=== PATIENT | male | born 1950 ===

== ENCOUNTER 2018-07-02 06:51 | Inpatient (IN) | payer MEDICARE, MEDICAID ==
[2017-10-01 09:31] VITALS: BMI 29.7
[2018-07-02] MEDS ORDERED: Bacitracin 150,000 UNIT in Sodium Chloride 0.9% Irrig 3,000 ML IR SCH (08:00)
[2018-07-02] MEDS ORDERED: Propofol 10 mg/ml Inj (20 ML) ONE (09:03)
[2018-07-02] MEDS ORDERED: Midazolam 2 MG/2 ML VIAL ONE ×2 (09:05→14:28)
[2018-07-02] MEDS ORDERED: Phenylephrine 10 mg/ml Inj ONE (09:29)
[2018-07-02] MEDS ORDERED: Rocuronium 10 mg/ml (5 ml) ONE (10:08)
[2018-07-02] MEDS ORDERED: Morphine 4 MG/ML VIAL ONE (10:25)
[2018-07-02] MEDS: Bupivacaine Liposomal Inj 20 ml INFIL ONE ×2 (10:33→12:00)
[2018-07-02] MEDS ORDERED: Sodium Chloride 0.9% 60 ML IV ONE (11:32)
[2018-07-02] MEDS ORDERED: ePHEDrine 50 mg/ml Inj ONE (12:25)
[2018-07-02] MEDS ORDERED: HYDROmorphone 0.5 mg/0.5 ml ISec IVP PRN (13:12)
[2018-07-02] MEDS ORDERED: Neostigmine Methylsulfate 3mg/3ml Syringe IV ONE (13:21)
[2018-07-02] MEDS ORDERED: Sodium Chloride 0.9% 1,000 ML IV SCH (13:30)
[2018-07-02] MEDS: HYDROmorphone 0.5 mg/0.5 ml ISec IVP PRN ×6 (13:34→15:58)
[2018-07-02] MEDS ORDERED: Midazolam 2 MG/2 ML VIAL IM ONE (14:30)
[2018-07-02] MEDS ORDERED: Bupivacaine 0.25% 20 ML INJ IJ ONE (14:31)
--- NOTE | 2018-07-02 15:11 | RAD ---
Indication: Status post TKR Comparison: None Left knee radiographs Findings: The patient is status post left knee total arthroplasty. Alignment appears satisfactory. Soft tissue swelling, subcutaneous emphysema, surgical drain, and surgical maude compatible with recent postoperative history Impression: Status post left arthroplasty as above.
--- NOTE | 2018-07-02 15:15 | CP.PCM.HP ---
<Terence Fitzpatrick - Last Filed: 07/02/18 17:37> History of Present Illness - History of Present Illness History of Present Illness: PGY1 History and Physical Exam for Dr. Merna Lucero This is a 67 year old male with past medical history of Hep C with possible liver cirrhosis, HTN, HLD, migraine, History of heroin abuse (on methadone for 37 years), and degenerative arthritis of bilateral knees who presents to [facility] POD0 status-post Left TKR with Dr. Prashant Bates 07/02. Patient's is at bedside during evaluation with consent of patient. Patient has no current complaints. Patient complains of pain in his left knee, but otherwise denies chest pain, palpitations, shortness of breath, headache, nausea, vomiting and/ or dizziness. History below was obtained directly from patients chart. PMH: Hep C, HTN, HLD, dilated common bile duct s/p ERCP on 12/23/[address] [facility], heroin abuse (on methadone for 37 years), degenerative arthritis PSH: Left TKR (07/02/18) Sphinctorotomy with bile duct stents x2 Social: Smokes 4 cigarettes daily since his 20's, history of heroin abuse on methadone x37 years Family History: Father: Arthritis PMD: Dr. Lucas Ryan MD ([facility]) Allergies: acetaminophen, penicillins Medications: ASA 81mg PO daily Atorvastatin was discontinued 2/2 increased LFTs Ezetimibe 10mg daily Cozaar 25mg PO Daily Metoprolol Succinate 25mg PO daily Imitrex 25mg BID Methadone 50mg PO daily Present on Admission - Present on Admission Any Indicators Present on Admission: Yes History of DVT/PE: No History of Uncontrolled Diabetes: No Urinary Catheter: No Decubitus Ulcer Present: No History Surgical Site Infection Following: Orthopedic Procedures (Left TKR (07/02) ) Review of Systems - Review of Systems All systems: reviewed and no additional remarkable complaints except - Constitutional Constitutional: As Per HPI - EENT Eyes: As Per HPI Ears: As Per HPI Nose/Mouth/Throat: As Per HPI - Cardiovascular Cardiovascular: As Per HPI - Respiratory Respiratory: As Per HPI - Gastrointestinal Gastrointestinal: As Per HPI - Genitourinary Genitourinary: As Per HPI - Reproductive: Male Reproductive:Male: As Per HPI - Musculoskeletal Musculoskeletal: As Per HPI - Integumentary Integumentary: As Per HPI - Neurological Neurological: As Per HPI - Psychiatric Psychiatric: As Per HPI - Endocrine Endocrine: As Per HPI - Hematologic/Lymphatic Hematologic: As Per HPI Past Patient History - Past Medical History & Family History Past Medical History?: Yes - Past Social History Smoking Status: Never Smoked - CARDIAC Hx Hypertension: Yes - PULMONARY Hx Respiratory Disorders: Yes Hx Pneumonia: Yes (1 year ago) - NEUROLOGICAL Hx Neurological Disorder: No - HEENT Hx HEENT Problems: Yes Hx Cataracts: Yes (bilat iol) - RENAL Hx Chronic Kidney Disease: No - ENDOCRINE/METABOLIC Hx Endocrine Disorders: No - HEMATOLOGICAL/ONCOLOGICAL Hx Blood Disorders: Yes Hx Hepatitis C: Yes (treated no longer) - INTEGUMENTARY Hx Dermatological Problems: No - MUSCULOSKELETAL/RHEUMATOLOGICAL Hx Musculoskeletal Disorders: Yes Hx Degenerative Joint Disease: Yes Hx Osteoarthritis: Yes - GASTROINTESTINAL Hx Gastrointestinal Disorders: No - GENITOURINARY/GYNECOLOGICAL Hx Genitourinary Disorders: No - PSYCHIATRIC Hx Psychophysiologic Disorder: Yes Hx Substance Use: Yes (40 years ago snorted cocaine and herion) - SURGICAL HISTORY Hx Surgeries: Yes Hx Arthroscopy: Yes (LEFT KNEE) Hx Cataract Extraction: Yes - ANESTHESIA Hx Anesthesia: Yes Hx Anesthesia Reactions: No Hx Malignant Hyperthermia: No Has any member of the family had a problem w/ anesthesia?: No Meds Allergies/Adverse Reactions: Allergies Allergy/AdvReac Type Severity Reaction Status Date / Time acetaminophen [From Tylenol] Allergy Intermediate RASH Verified 06/27/18 10:34 Penicillins Allergy Intermediate RASH Verified 02/11/17 09:20 Physical Exam - Constitutional Appears: No Acute Distress - Head Exam Head Exam: ATRAUMATIC, NORMAL INSPECTION, NORMOCEPHALIC - Eye Exam Eye Exam: EOMI, Normal appearance Pupil Exam: NORMAL ACCOMODATION - ENT Exam ENT Exam: Normal Exam - Neck Exam Neck exam: Positive for: Normal Inspection - Respiratory Exam Respiratory Exam: Clear to Auscultation Bilateral, NORMAL BREATHING PATTERN - Cardiovascular Exam Cardiovascular Exam: Tachycardia, REGULAR RHYTHM, +S1, +S2 - GI/Abdominal Exam GI & Abdominal Exam: Normal Bowel Sounds, Soft. absent: Tenderness - Extremities Exam Extremities exam: Positive for: joint swelling (left knee joint with ice packs. Left knee with drain with dark red into tube into canister. ) - Back Exam Back exam: NORMAL INSPECTION - Neurological Exam Neurological exam: Alert, Oriented x3 - Psychiatric Exam Psychiatric exam: Normal Affect, Normal Mood - Skin Skin Exam: Dry, Intact, Normal Color Results - Vital Signs Recent Vital Signs: Last Vital Signs Temp 98 F 07/02/18 07:25 Pulse 60 07/02/18 07:25 Resp 18 07/02/18 07:25 BP 121/81 07/02/18 07:25 Pulse Ox 96 07/02/18 07:25 - Labs Labs: Laboratory Results - last 24 hr 07/02/18 08:17 Blood Type O POSITIVE Antibody Screen Negative Assessment & Plan - Assessment and Plan (Free Text) Assessment: Degenerative Arthritis of L knee S/P L TKR, POD0 - Incentive spirometry Q1 while awake - Clindamycin 900mg IVPB Q8H - PT/OT consulted, recommendations appreciated - Diet: healthy heart diet, managed by surgery - Pain management: * Dilauded pump 6mg IV Q4H PRN * Nerve block placed (07/02) * Oxycodone 10mg PO Q6 PRN - Urine output: 250cc yellow clear liquid - IVF NS @80cc/hr - Monitor CBC, CMP - Neuro checks - Elevate L knee HTN - Continue home medications * Lopressor 25mg PO daily * Losartan 25mg PO daily - Monitor HLD - Discontinue atorvastatin due to elevated LFTs on pre-op labs - Start Ezetimibe 10mg daily Migraine - Home meds: Imitrex 25mg PO BID History of Heroin Abuse - Hold methadone today - Re-start home dose Methadone 50mg PO daily Hep C - monitor LFT - discontinued atorvastatin PPx: Moderate risk (2) CAD: Lexiscan stress test 06/10/18 negative for ischemia (see chart) ASA 81mg PO daily Lovnox 40mg SC Q24H Bedside swallow eval Colace 100mg PO BID Patient seen and case discussed with Dr. Merna Fitzpatrick PGY1 <Nic Bauman H - Last Filed: 07/02/18 18:19> Results - Vital Signs Recent Vital Signs: Last Vital Signs Temp 97.5 F L 07/02/18 17:00 Pulse 91 H 07/02/18 17:00 Resp 15 07/02/18 17:00 BP 154/82 H 07/02/18 17:00 Pulse Ox 100 09/19/18 17:00 - Labs Labs: Laboratory Results - last 24 hr 07/02/18 08:17 Blood Type O POSITIVE Antibody Screen Negative Attending/Attestation - Attestation I have personally seen and examined this patient.: Yes I have fully participated in the care of the patient.: Yes I have reviewed all pertinent clinical information: Yes Notes (Text): 07/02/18 18:19 Medical attending: Patient was seen and examined by me, agrees the above note by the medical certification specialist. The patient was seen in PACU. He had earlier received nerve block and he said that the nerve block was some a controlling his pain. But there are orders for a AGRICULTURAL SCIENCES PROFESSOR pump to be started later on today. The patient's was present at bedside, the patient was okay with the family member being at bedside when we came and spoke with him As mentioned above the patient is status post total left knee replacement. The Lovenox as can be started tomorrow. Per my discussion with orthopedic PA, the patient is allowed to be weightbearing. There is a history of the patient being on methadone., According to the the patient had methadone earlier this morning before the surgery and does not need to take it tonight. The dose is 50 mg once a day Thank you very much, Nic Bauman
[2018-07-02] MEDS ORDERED: Midazolam 2 MG/2 ML VIAL IVP ONE (15:19)
--- NOTE | 2018-07-02 15:19 | PCM.ANESB3 ---
Femoral Nerve Block - Femoral Nerve Block Date of Procedure: 07/02/18 Anesthesiologist: Louis Pre-Procedure Diagnosis: s/p left total knee replacement Procedure Performed: Femoral Nerve Block Left - Procedure Femoral Nerve Block: 14:30 - 14:40 - Left femoral nerve block, adductor canal approach, done in PACU at request of Dr. Go. Using ultrasound guidance, under sterile conditions, 30 cc 0.25% bupivacaine injected in 5 cc increments, negative aspiration throughout. VSS, patient tolerated procedure well.
[2018-07-02 18:50] VITALS: RESP 20
[2018-07-02] MEDS: oxyCODONE 10 mg Immediate Release Tab PO PRN (20:54)
[2018-07-03] MEDS: oxyCODONE 10 mg Immediate Release Tab PO PRN (01:47)
--- NOTE | 2018-07-03 06:59 | CP.PCM.PN ---
Subjective - Date & Time of Evaluation Date of Evaluation: 07/03/18 Time of Evaluation: 06:59 - Subjective Subjective: Patient states dressing is too tight and he was in severe pain all night. Denies CP/SOB/dizziness. Denies numbness/tingling. He says the pain medication isn't helping. Advised patient that due to product tester methadone use, it is difficult to control pain aaron with narcotics and will add NSAID at this time. Patient also refused labs per RN, even after discussion with hospitalist. Patient states he iwll allow labs to be drawn tomorrow per RN Objective - Vital Signs/Intake and Output Vital Signs (last 24 hours): Temp Pulse Resp BP Pulse Ox 98.4 F 102 H 20 150/84 99 07/02/18 23:25 07/03/18 06:32 07/03/18 02:34 07/03/18 06:32 07/03/18 02:34 Intake and Output: 07/02/18 07/03/18 18:59 06:59 Intake Total 1812 1510 Output Total 850 1155 Balance 962 355 - Medications Medications: Current Medications Aspirin (Ecotrin) 81 mg PO DAILY [facility] Docusate Sodium (Colace) 100 mg PO BID [facility] Last Admin: 07/02/18 20:54 Dose: 100 mg Enoxaparin Sodium (Lovenox) 40 mg SC Q24H [facility] Hydromorphone/Sodium Chloride (Dilaudid Cattery Operator) 6 mg IV Q4H PRN; Protocol PRN Reason: Pain, moderate (4-7) Last Admin: 07/03/18 05:17 Dose: 6 mg Clindamycin Phosphate 900 mg/ (Sodium Chloride) 106 mls @ 106 mls/hr IVPB Q8H [facility] PRN Reason: Protocol Stop: 07/06/18 09:59 Last Admin: 07/03/18 01:48 Dose: 106 mls/hr Sodium Chloride (Sodium Chloride 0.9%) 1,000 mls @ 80 mls/hr IV .[id number] [facility] Stop: 07/03/18 14:29 Losartan Potassium (Cozaar) 25 mg PO DAILY [facility] Metoprolol Succinate (Toprol Xl) 25 mg PO DAILY [facility] Oxycodone HCl (Oxycodone Immediate Release Tab) 10 mg PO Q6 PRN PRN Reason: Pain, moderate (4-7) Last Admin: 07/03/18 01:47 Dose: 10 mg Pneumococcal Polyvalent Vaccine (Pneumovax 23 Vaccine) 0.5 ml IM .ONCE ONE Stop: 07/05/18 10:01 - Extremities Exam Additional comments: Left knee: hemovac 15cc last 8 hours, pulled webril and garrett tight, loosened and adjusted knee immobilizer removed, instructed patient it must be worn at night +ROM ankle/toes, sensation intact, +PDP pulses calves soft NT neg homans patient says he has some relief after looseningn of dressing Assessment and Plan (1) Primary osteoarthritis of left knee Assessment & Plan: POD#1 s/p left TKR encourage labs encourage PT/OT VTE proph hemovac pulled d/c planning d/w Dr. George, agrees with above Status: Acute
--- NOTE | 2018-07-03 07:34 | CP.PCM.PN ---
<Terence Fitzpatrick - Last Filed: 07/03/18 10:50> Subjective - Date & Time of Evaluation Date of Evaluation: 07/03/18 Time of Evaluation: 07:31 - Subjective Subjective: Progress note for Dr. Bauman Patient seen and evaluated at bedside this morning. was at bedside with permission of patient. Patient was reminded that he is POD1 and that some pain is to be expected. Patient refused bloodwork today. Patient otherwise denies chest pain, shortness of breath, dizziness, tremors, diaphoresis, nausea, vomiting, diarrhea, fever, chills, and/or headache. 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 Objective - Vital Signs/Intake and Output Vital Signs (last 24 hours): Temp Pulse Resp BP Pulse Ox 98.4 F 102 H 20 150/84 99 07/02/18 23:25 07/03/18 06:32 07/03/18 02:34 07/03/18 06:32 07/03/18 02:34 Intake and Output: 07/03/18 07/03/18 06:59 18:59 Intake Total 1510 Output Total 1155 Balance 355 - Medications Medications: Current Medications Aspirin (Ecotrin) 81 mg PO DAILY [facility] Docusate Sodium (Colace) 100 mg PO BID [facility] Last Admin: 07/02/18 20:54 Dose: 100 mg Enoxaparin Sodium (Lovenox) 40 mg SC Q24H [facility] Hydromorphone/Sodium Chloride (Dilaudid [employer] Fishing Boat Crewman) 6 mg IV Q4H PRN; Protocol PRN Reason: Pain, moderate (4-7) Last Admin: 07/03/18 05:17 Dose: 6 mg Clindamycin Phosphate 900 mg/ (Sodium Chloride) 106 mls @ 106 mls/hr IVPB Q8H [facility] PRN Reason: Protocol Stop: 07/06/18 09:59 Last Admin: 07/03/18 01:48 Dose: 106 mls/hr Sodium Chloride (Sodium Chloride 0.9%) 1,000 mls @ 80 mls/hr IV .[id number] [facility] Stop: 07/03/18 14:29 Ketorolac Tromethamine (Toradol) 30 mg IVP Q6H [facility] Last Admin: 07/03/18 07:24 Dose: 30 mg Losartan Potassium (Cozaar) 25 mg PO DAILY [facility] Metoprolol Succinate (Toprol Xl) 25 mg PO DAILY [facility] Oxycodone HCl (Oxycodone Immediate Release Tab) 10 mg PO Q6 PRN PRN Reason: Pain, moderate (4-7) Last Admin: 07/03/18 01:47 Dose: 10 mg Pneumococcal Polyvalent Vaccine (Pneumovax 23 Vaccine) 0.5 ml IM .ONCE ONE Stop: 07/05/18 10:01 - Additional Findings Additional findings: - Constitutional Appears: No Acute Distress - Head Exam Head Exam: ATRAUMATIC, NORMAL INSPECTION, NORMOCEPHALIC - Eye Exam Eye Exam: EOMI, Normal appearance Pupil Exam: NORMAL ACCOMODATION - ENT Exam ENT Exam: Normal Exam - Neck Exam Neck exam: Positive for: Normal Inspection - Respiratory Exam Respiratory Exam: Clear to Auscultation Bilateral, NORMAL BREATHING PATTERN - Cardiovascular Exam Cardiovascular Exam: Tachycardia, REGULAR RHYTHM, +S1, +S2 - GI/Abdominal Exam GI & Abdominal Exam: Normal Bowel Sounds, Soft. absent: Tenderness absent: Singer catheter (was removed) - Extremities Exam Extremities exam: Positive for: joint swelling (Left knee yeast culture operator to cooling system) Dilaudid pump in tact. bilateral lower extremities: gross sensation in tact bilaterally range of motion in tact in toes bilaterally - Back Exam Back exam: NORMAL INSPECTION - Neurological Exam Neurological exam: Alert, Oriented x3 - Psychiatric Exam Psychiatric exam: Normal Affect, Normal Mood - Skin Skin Exam: Dry, Intact, Normal Color Assessment and Plan - Assessment and Plan (Free Text) Assessment: Degenerative Arthritis of L knee S/P L TKR, POD1 - Incentive spirometry Q1 while awake - Clindamycin 900mg IVPB Q8H - PT/OT consulted, recommendations appreciated - Diet: healthy heart diet, managed by surgery - Pain management: * Dilaudid pump 6mg IV Q4H PRN * Will switch to home dose methadone once discontinued * Nerve block placed (07/02) * Oxycodone 10mg PO Q6 PRN - Urine output: 250cc yellow clear liquid - IVF NS @80cc/hr - Monitor CBC, CMP --> Patient refused bloodwork today. Will reattempt tomorrow 07/04 - Neuro checks - Elevate L knee HTN - Continue home medications * Lopressor 25mg PO daily * Losartan 25mg PO daily - Monitor HLD - Discontinue atorvastatin due to elevated LFTs on pre-op labs - Start Ezetimibe 10mg daily Migraine - Home meds: Imitrex 25mg PO BID History of Heroin Abuse - Hold methadone today - Re-start home dose Methadone 50mg PO daily Hep C - monitor LFT --> Patient refused bloodwork today. Will reattempt tomorrow 07/04 - discontinued atorvastatin PPx: Moderate risk (2) CAD: Lexiscan stress test 06/10/18 negative for ischemia (see chart) ASA 81mg PO daily Lovnox 40mg SC Q24H Bedside swallow eval Colace 100mg PO BID Patient seen and case discussed with Dr. Merna Fitzpatrick PGY1 <Nic Bauman - Last Filed: 07/03/18 14:49> Objective - Vital Signs/Intake and Output Vital Signs (last 24 hours): Temp Pulse Resp BP Pulse Ox 99.6 F 102 H 20 136/76 97 07/03/18 07:30 07/03/18 07:30 07/03/18 07:30 07/03/18 07:30 07/03/18 07:30 Intake and Output: 07/03/18 07/03/18 06:59 18:59 Intake Total 1510 60 Output Total 1155 Balance 355 60 - Medications Medications: Current Medications Aspirin (Ecotrin) 81 mg PO DAILY [facility] Last Admin: 07/03/18 09:35 Dose: 81 mg Docusate Sodium (Colace) 100 mg PO BID [facility] Last Admin: 07/03/18 09:35 Dose: 100 mg Enoxaparin Sodium (Lovenox) 40 mg SC Q24H [facility] Last Admin: 07/03/18 12:48 Dose: 40 mg Hydromorphone/Sodium Chloride (Dilaudid [employer]ishing Boat Crewman) 6 mg IV Q4H PRN; Protocol PRN Reason: Pain, moderate (4-7) Last Admin: 07/03/18 05:17 Dose: 6 mg Clindamycin Phosphate 900 mg/ (Sodium Chloride) 106 mls @ 106 mls/hr IVPB Q8H [facility] PRN Reason: Protocol Stop: 07/06/18 09:59 Last Admin: 07/03/18 09:34 Dose: 106 mls/hr Ketorolac Tromethamine (Toradol) 30 mg IVP Q6H [facility] Last Admin: 07/03/18 12:47 Dose: 30 mg Losartan Potassium (Cozaar) 25 mg PO DAILY [facility] Last Admin: 07/03/18 09:35 Dose: 25 mg Metoprolol Succinate (Toprol Xl) 25 mg PO DAILY [facility] Last Admin: 07/03/18 09:35 Dose: 25 mg Oxycodone HCl (Oxycodone Immediate Release Tab) 10 mg PO Q6 PRN PRN Reason: Pain, moderate (4-7) Last Admin: 07/03/18 01:47 Dose: 10 mg Pneumococcal Polyvalent Vaccine (Pneumovax 23 Vaccine) 0.5 ml IM .ONCE ONE Stop: 07/05/18 10:01 Attending/Attestation - Attestation I have personally seen and examined this patient.: Yes I have fully participated in the care of the patient.: Yes I have reviewed all pertinent clinical information, including history, physical exam and plan: Yes Notes (Text): 07/03/18 14:37 Medical attending: Patient was seen and examined by me, reviewed the above note by the medical services assistant. We saw the patient together. The patient was not in any acute distress when I came and saw him. He tells us that the IV Dilaudid FLOATING [employer]OR GANG SUPERVISOR pump is not enough for him and he actually asked us for more pain medication again I should emphasize that he was not in any acute distress when we saw him. He is already on by mouth immediate release oxycodone , and and also got tramadol overnight. I explained to the family members that are he might be very used to high doses of narcotic medication as he is normally taking methadone. At this time he is not reporting any abdominal pain or nausea. Denied chest pain , denied palpitations. He's can be started on the Lovenox today. As we were leaving he was beginning to have PT/OT evaluation Hopefully tomorrow the patient will allow for blood work, as he refused earlier today when they tried to get a CBC. Nic Bauman
[2018-07-03] MEDS: Metoprolol Succinate 25 mg XL Tab PO SCH (09:35)
[2018-07-03] MEDS: Enoxaparin 40 mg Syringe SC SCH (12:48)
--- NOTE | 2018-07-04 06:58 | CP.PCM.PN ---
<Terence Fitzpatrick - Last Filed: 07/04/18 10:43> Subjective - Date & Time of Evaluation Date of Evaluation: 07/04/18 Time of Evaluation: 06:57 - Subjective Subjective: Progress note for Dr. Bauman Patient seen and evaluated at bedside this morning. Patient is s/p L TKR POD2. Patient was able to get out of bed with PT this morning without complaints. Sitting up in bed and has been using incentive spirometry throughout the day and is compliant. Patient initially declined bloodwork earlier this morning, but when approached about it again, he agreed. Nurse was notified and is aware that he will allow bloodwork done today. Patient otherwise denies chest pain, shortness of breath, dizziness, tremors, diaphoresis, nausea, vomiting, diarrhea , fever, chills, and/or headache. Objective - Vital Signs/Intake and Output Vital Signs (last 24 hours): Temp Pulse Resp BP Pulse Ox 98.7 F 98 H 20 127/95 H 96 07/04/18 04:00 07/04/18 04:00 07/04/18 04:00 07/04/18 04:00 07/04/18 04:00 Intake and Output: 07/03/18 07/04/18 18:59 06:59 Intake Total 60 Balance 60 - Medications Medications: Current Medications Aspirin (Ecotrin) 81 mg PO DAILY [facility] Last Admin: 07/03/18 09:35 Dose: 81 mg Docusate Sodium (Colace) 100 mg PO BID [facility] Last Admin: 07/03/18 17:15 Dose: 100 mg Enoxaparin Sodium (Lovenox) 40 mg SC Q24H [facility] Last Admin: 07/03/18 12:48 Dose: 40 mg Hydromorphone/Sodium Chloride (Dilaudid Auger Supervisor) 6 mg IV Q4H PRN; Protocol PRN Reason: Pain, moderate (4-7) Last Admin: 07/03/18 21:41 Dose: 6 mg Ketorolac Tromethamine (Toradol) 30 mg IVP Q6H [facility] Last Admin: 07/04/18 01:19 Dose: 30 mg Losartan Potassium (Cozaar) 25 mg PO DAILY [facility] Last Admin: 07/03/18 09:35 Dose: 25 mg Metoprolol Succinate (Toprol Xl) 25 mg PO DAILY [facility] Last Admin: 07/03/18 09:35 Dose: 25 mg Oxycodone HCl (Oxycodone Immediate Release Tab) 10 mg PO Q6 PRN PRN Reason: Pain, moderate (4-7) Last Admin: 07/03/18 01:47 Dose: 10 mg Pneumococcal Polyvalent Vaccine (Pneumovax 23 Vaccine) 0.5 ml IM .ONCE ONE Stop: 07/05/18 10:01 - Additional Findings Additional findings: - Constitutional Appears: No Acute Distress - Head Exam Head Exam: ATRAUMATIC, NORMAL INSPECTION, NORMOCEPHALIC - Eye Exam Eye Exam: EOMI, Normal appearance Pupil Exam: NORMAL ACCOMODATION - ENT Exam ENT Exam: Normal Exam - Neck Exam Neck exam: Positive for: Normal Inspection - Respiratory Exam Respiratory Exam: Clear to Auscultation Bilateral, NORMAL BREATHING PATTERN - Cardiovascular Exam Cardiovascular Exam: Tachycardia, REGULAR RHYTHM, +S1, +S2 - GI/Abdominal Exam GI & Abdominal Exam: Normal Bowel Sounds, Soft. 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 bilateral lower extremities: gross sensation in tact bilaterally range of motion in tact in toes bilaterally - Back Exam Back exam: NORMAL INSPECTION - Neurological Exam Neurological exam: Alert, Oriented x3 - Psychiatric Exam Psychiatric exam: Normal Affect, Normal Mood - Skin Skin Exam: Dry, Intact, Normal Color Assessment and Plan - Assessment and Plan (Free Text) Assessment: Degenerative Arthritis of L knee S/P L TKR, POD2 - Incentive spirometry Q1 while awake - Clindamycin 900mg IVPB Q8H - PT/OT consulted, recommend TCU. Will follow-up on placement - Diet: healthy heart diet, managed by surgery - Pain management: * Discontinued: Dilaudid pump 6mg IV Q4H PRN * Will switch to home dose methadone once discontinued * Nerve block placed (07/02) * Oxycodone 10mg PO Q6 PRN - IVF NS @80cc/hr - Monitor CBC, CMP --> Patient refused bloodwork earlier today. Pending bloodwork this morning (see subjective) - Neuro checks - Elevate L knee HTN - Continue home medications * Lopressor 25mg PO daily * Losartan 25mg PO daily - Monitor HLD - Discontinue atorvastatin due to elevated LFTs on pre-op labs - Start Ezetimibe 10mg daily Migraine - Home meds: Imitrex 25mg PO BID History of Heroin Abuse - Re-start home dose Methadone 50mg PO daily Hep C - Monitor LFT --> Patient refused bloodwork today. Will reattempt tomorrow 07/04 - Discontinued atorvastatin PPx: Moderate risk (2) CAD: Lexiscan stress test 06/10/18 negative for ischemia (see chart) ASA 81mg PO daily Lovnox 40mg SC Q24H Bedside swallow eval Colace 100mg PO BID Dispo: patient is to be discharged to TCU per PT recommendations. Patient agrees. Case Management will follow up on placement. Pending that the bloodwork from today confirms hemodynamic stability, patient can be discharged once placement is confirmed. Patient seen and case discussed with Dr. Merna Fitzpatrick PGY1 <Nic Bauman - Last Filed: 07/04/18 13:37> Objective - Vital Signs/Intake and Output Vital Signs (last 24 hours): Temp Pulse Resp BP Pulse Ox 99.7 F H 96 H 20 131/68 100 07/04/18 07:00 07/04/18 07:00 07/04/18 07:00 07/04/18 07:00 07/04/18 07:00 - Medications Medications: Current Medications Aspirin (Ecotrin) 81 mg PO DAILY [facility] Last Admin: 07/04/18 09:28 Dose: 81 mg Docusate Sodium (Colace) 100 mg PO BID [facility] Last Admin: 07/04/18 09:29 Dose: 100 mg Enoxaparin Sodium (Lovenox) 40 mg SC Q24H [facility] Last Admin: 07/04/18 12:30 Dose: 40 mg Hydromorphone HCl (Dilaudid) 2 mg IVP Q4H PRN PRN Reason: Pain, severe (8-10) Last Admin: 07/04/18 11:53 Dose: 2 mg Ketorolac Tromethamine (Toradol) 30 mg IVP Q6H [facility] Last Admin: 07/04/18 08:41 Dose: Not Given Losartan Potassium (Cozaar) 25 mg PO DAILY [facility] Last Admin: 07/04/18 09:28 Dose: 25 mg Metoprolol Succinate (Toprol Xl) 25 mg PO DAILY [facility] Last Admin: 07/04/18 09:29 Dose: 25 mg Oxycodone HCl (Oxycodone Immediate Release Tab) 10 mg PO Q6 PRN PRN Reason: Pain, moderate (4-7) Last Admin: 07/03/18 01:47 Dose: 10 mg Pneumococcal Polyvalent Vaccine (Pneumovax 23 Vaccine) 0.5 ml IM .ONCE ONE Stop: 07/05/18 10:01 - Labs Labs: 07/04/18 11:38 07/04/18 11:38 Attending/Attestation - Attestation I have personally seen and examined this patient.: Yes I have fully participated in the care of the patient.: Yes I have reviewed all pertinent clinical information, including history, physical exam and plan: Yes Notes (Text): 07/04/18 13:37 Medical attending: Patient was seen and examined by me, we saw the patient with the medical research assistant. I reviewed the above note by the resident and agree with the above Fortunately the patient allowed us to get a CBC. Hemoglobin was 9.4. He denied having any chest pain, denied shortness of breath, denied palpitations He reported that overall the pain and his left knee area was much less than previous day. He is now off of the FIELD SERVICER pump, will restart the patient on methadone however only half dose as he still getting other types of pain medication. Nic Bauman
[2018-07-04] MEDS: Metoprolol Succinate 25 mg XL Tab PO SCH (09:29)
--- NOTE | 2018-07-04 10:06 | CP.PCM.PN ---
Subjective - Date & Time of Evaluation Date of Evaluation: 07/04/18 Time of Evaluation: 10:03 - Subjective Subjective: Patient much more comfortable today. Says he still has a lot of pain, but it is better. Denies CP?SOB/dizziness/numbness/tingling Objective - Vital Signs/Intake and Output Vital Signs (last 24 hours): Temp Pulse Resp BP Pulse Ox 99.7 F H 96 H 20 131/68 100 07/04/18 07:00 07/04/18 07:00 07/04/18 07:00 07/04/18 07:00 07/04/18 07:00 - Medications Medications: Current Medications Aspirin (Ecotrin) 81 mg PO DAILY [facility] Last Admin: 07/04/18 09:28 Dose: 81 mg Docusate Sodium (Colace) 100 mg PO BID [facility] Last Admin: 07/04/18 09:29 Dose: 100 mg Enoxaparin Sodium (Lovenox) 40 mg SC Q24H [facility] Last Admin: 07/03/18 12:48 Dose: 40 mg Hydromorphone HCl (Dilaudid) 2 mg IVP Q4H PRN PRN Reason: Pain, severe (8-10) Ketorolac Tromethamine (Toradol) 30 mg IVP Q6H [facility] Last Admin: 07/04/18 08:41 Dose: Not Given Losartan Potassium (Cozaar) 25 mg PO DAILY [facility] Last Admin: 07/04/18 09:28 Dose: 25 mg Metoprolol Succinate (Toprol Xl) 25 mg PO DAILY [facility] Last Admin: 07/04/18 09:29 Dose: 25 mg Oxycodone HCl (Oxycodone Immediate Release Tab) 10 mg PO Q6 PRN PRN Reason: Pain, moderate (4-7) Last Admin: 07/03/18 01:47 Dose: 10 mg Pneumococcal Polyvalent Vaccine (Pneumovax 23 Vaccine) 0.5 ml IM .ONCE ONE Stop: 07/05/18 10:01 - Extremities Exam Additional comments: Left knee: garrett reapplied. +ROM ankle/toes, sensation intact, +DP/PT pulses Assessment and Plan (1) Primary osteoarthritis of left knee Assessment & Plan: POD#2 s/p left TKR orthostable for d/c still awaiting labs, patient had refused cont PT/OT/VTE proph f/u Dr. Go in 7-10 day call for appt d/w Dr. Go, agrees with above Status: Acute
[2018-07-04 11:53] LABS: MEAN CORPUSCULAR HGB CONC 35.7 g/dL (33.0-37.0); MEAN PLATELET VOLUME 7.9 fL (7.2-11.7); RBC 3.03 Mil/uL (4.40-5.90); RED CELL DISTRIBUTION WIDTH 12.8 % (11.5-14.5); WHITE BLOOD COUNT 10.8 K/uL (4.8-10.8)
[2018-07-04 11:56] LABS: HEMOGLOBIN 9.4 g/dL (12.0-18.0); MEAN CELL VOLUME 86.9 fL (80.0-94.0)
[2018-07-04 12:10] LABS: ALB/GLOB RATIO 1.1 (1.0-2.1); ALBUMIN 3.3 g/dL (3.5-5.0); ALT/SGPT 58 U/L (21-72); AST/SGOT 36 U/L (17-59); BLOOD UREA NITROGEN 8 mg/dL (9-20); CALCIUM 8.7 mg/dl (8.6-10.4); GFR NON-AFRICAN AMERICAN > 60
[2018-07-04] MEDS: Enoxaparin 40 mg Syringe SC SCH (12:30)
[2018-07-05 08:27] VITALS: O2SAT 96
--- NOTE | 2018-07-05 08:36 | CP.PCM.DIS ---
<Helen Key - Last Filed: 07/05/18 09:35> Provider - Provider Date of Admission: 07/02/18 06:51 Attending physician: Nic Bauman DO Primary care physician: NO FAMILY PROVIDER Time Spent in preparation of Discharge (in minutes): 55 Hospital Course - Lab Results Lab Results: Most Recent Lab Values WBC 10.8 K/uL (4.8-10.8) 07/04/18 11:38 RBC 3.03 Mil/uL (4.40-5.90) L 07/04/18 11:38 Hgb 9.4 g/dL (12.0-18.0) L D 07/04/18 11:38 Hct 26.3 % (35.0-51.0) L 07/04/18 11:38 MCV 86.9 fL (80.0-94.0) D 07/04/18 11:38 MCH 31.0 pg (27.0-31.0) 07/04/18 11:38 MCHC 35.7 g/dL (33.0-37.0) 07/04/18 11:38 RDW 12.8 % (11.5-14.5) 07/04/18 11:38 Plt Count 156 K/uL (130-400) 07/04/18 11:38 MPV 7.9 fL (7.2-11.7) 07/04/18 11:38 Sodium 138 mmol/L (132-148) 07/04/18 11:38 Potassium 4.1 mmol/L (3.6-5.2) 07/04/18 11:38 Chloride 101 mmol/L (98-107) 07/04/18 11:38 Carbon Dioxide 29 mmol/L (22-30) 07/04/18 11:38 Anion Gap 12 (10-20) 07/04/18 11:38 BUN 8 mg/dL (9-20) L 07/04/18 11:38 Creatinine 0.6 mg/dL (0.8-1.5) L 07/04/18 11:38 Est GFR ( Amer) > 60 07/04/18 11:38 Est GFR (Non-Af Amer) > 60 07/04/18 11:38 Random Glucose 126 mg/dL (75-110) H 07/04/18 11:38 Calcium 8.7 mg/dl (8.6-10.4) 07/04/18 11:38 Total Bilirubin 1.1 mg/dL (0.2-1.3) 07/04/18 11:38 AST 36 U/L (17-59) 07/04/18 11:38 ALT 58 U/L (21-72) 07/04/18 11:38 Alkaline Phosphatase 95 U/L (38-126) 07/04/18 11:38 Total Protein 6.5 g/dL (6.3-8.3) 07/04/18 11:38 Albumin 3.3 g/dL (3.5-5.0) L 07/04/18 11:38 Globulin 3.1 gm/dL (2.2-3.9) 07/04/18 11:38 Albumin/Globulin Ratio 1.1 (1.0-2.1) 07/04/18 11:38 Blood Type O POSITIVE 07/02/18 08:17 Antibody Screen Negative 07/02/18 08:17 - Hospital Course Hospital Course: Upon admission: This is a 67 year old male with past medical history of Hep C with possible liver cirrhosis, HTN, HLD, migraine, History of heroin abuse (on methadone for 37 years), and degenerative arthritis of bilateral knees who presents to [facility] POD0 status-post Left TKR with Dr. Prashant Bates 07/02. Patient's is at bedside during evaluation with consent of patient. Patient has no current complaints. Patient complains of pain in his left knee, but otherwise denies chest pain, palpitations, shortness of breath, headache, nausea, vomiting and/ or dizziness. History below was obtained directly from patients chart. PMH: Hep C, HTN, HLD, dilated common bile duct s/p ERCP on 12/23/17 @ [facility], heroin abuse (on methadone for 37 years), degenerative arthritis PSH: Left TKR (07/02/18) Sphinctorotomy with bile duct stents x2 Social: Smokes 4 cigarettes daily since his 20's, history of heroin abuse on methadone x37 years Family History: Father: Arthritis PMD: Dr. Lucas Ryan MD ([facility]) Allergies: acetaminophen, penicillins Medications: ASA 81mg PO daily Atorvastatin was discontinued 2/2 increased LFTs Ezetimibe 10mg daily Cozaar 25mg PO Daily Metoprolol Succinate 25mg PO daily Imitrex 25mg BID Methadone 50mg PO daily Throughout Hospital Course: Degenerative Arthritis of L knee S/P L TKR, POD2 - Incentive spirometry Q1 while awake - Clindamycin 900mg IVPB Q8H - PT/OT consulted, recommend TCU. Will follow-up on placement - Diet: healthy heart diet, managed by surgery - Pain management: * Discontinued: Dilaudid pump 6mg IV Q4H PRN * Will switch to home dose methadone once discontinued * Nerve block placed (07/02) * Oxycodone 10mg PO Q6 PRN - IVF NS @80cc/hr - Monitor CBC, CMP --> Patient refused bloodwork earlier today. Pending bloodwork this morning (see subjective) - Neuro checks - Elevate L knee HTN - Continue home medications * Lopressor 25mg PO daily * Losartan 25mg PO daily - Monitor HLD - Discontinue atorvastatin due to elevated LFTs on pre-op labs - Start Ezetimibe 10mg daily Migraine - Home meds: Imitrex 25mg PO BID History of Heroin Abuse - Re-start home dose Methadone 50mg PO daily Hep C - Monitor LFT --> Patient refused bloodwork today. Will reattempt tomorrow 07/04 - Discontinued atorvastatin PPx: Moderate risk (2) CAD: Lexiscan stress test 06/10/18 negative for ischemia (see chart) ASA 81mg PO daily Lovnox 40mg SC Q24H Bedside swallow eval Colace 100mg PO BID Please review EMR as this is a brief summary of the patient's hospital course. Discharge Exam - Additional Findings Additional findings: - Constitutional Appears: No Acute Distress - Head Exam Head Exam: ATRAUMATIC, NORMAL INSPECTION, NORMOCEPHALIC - Eye Exam Eye Exam: EOMI, Normal appearance Pupil Exam: NORMAL ACCOMODATION - ENT Exam ENT Exam: Normal Exam - Neck Exam Neck exam: Positive for: Normal Inspection - Respiratory Exam Respiratory Exam: Clear to Auscultation Bilateral, NORMAL BREATHING PATTERN - Cardiovascular Exam Cardiovascular Exam: Tachycardia, REGULAR RHYTHM, +S1, +S2 - GI/Abdominal Exam GI & Abdominal Exam: Normal Bowel Sounds, Soft. 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 bilateral lower extremities: gross sensation in tact bilaterally range of motion in tact in toes bilaterally - Back Exam Back exam: NORMAL INSPECTION - Neurological Exam Neurological exam: Alert, Oriented x3 - Psychiatric Exam Psychiatric exam: Normal Affect, Normal Mood - Skin Skin Exam: Dry, Intact, Normal Color Discharge Plan - Follow Up Plan Condition: GOOD Disposition: REHAB FACILITY/REHAB UNIT Additional Instructions: Patient is to continue medications as indicated. Patient is to follow up with his primary care physician within 1-2 weeks. Please follow up with Dr. Young within 1-2 weeks. Please take care and be well. Referrals: [facility] [Outside] Celeste Young MD [Staff Provider] - <Nic Bauman - Last Filed: 07/05/18 11:28> Provider - Provider Date of Admission: 07/02/18 06:51 Attending physician: Nic Bauman DO Primary care physician: NO FAMILY PROVIDER Hospital Course - Lab Results Lab Results: Most Recent Lab Values WBC 8.4 K/uL (4.8-10.8) 07/05/18 10:56 RBC 2.95 Mil/uL (4.40-5.90) L 07/05/18 10:56 Hgb 9.2 g/dL (12.0-18.0) L 07/05/18 10:56 Hct 25.9 % (35.0-51.0) L 07/05/18 10:56 MCV 87.6 fL (80.0-94.0) 07/05/18 10:56 MCH 31.3 pg (27.0-31.0) H 07/05/18 10:56 MCHC 35.7 g/dL (33.0-37.0) 07/05/18 10:56 RDW 12.7 % (11.5-14.5) 07/05/18 10:56 Plt Count 165 K/uL (130-400) 07/05/18 10:56 MPV 7.9 fL (7.2-11.7) 07/05/18 10:56 Neut % (Auto) 66.2 % (50.0-75.0) 07/05/18 10:56 Lymph % (Auto) 22.6 % (20.0-40.0) 07/05/18 10:56 [place] % (Auto) 8.2 % (0.0-10.0) 07/05/18 10:56 Eos % (Auto) 2.5 % (0.0-4.0) 07/05/18 10:56 Baso % (Auto) 0.5 % (0.0-2.0) 07/05/18 10:56 Neut # (Auto) 5.6 K/uL (1.8-7.0) 07/05/18 10:56 Lymph # (Auto) 1.9 K/uL (1.0-4.3) 07/05/18 10:56 [place] # (Auto) 0.7 K/uL (0.0-0.8) 07/05/18 10:56 Eos # (Auto) 0.2 K/uL (0.0-0.7) 07/05/18 10:56 Baso # (Auto) 0.0 K/uL (0.0-0.2) 07/05/18 10:56 Sodium 138 mmol/L (132-148) 07/04/18 11:38 Potassium 4.1 mmol/L (3.6-5.2) 07/04/18 11:38 Chloride 101 mmol/L (98-107) 07/04/18 11:38 Carbon Dioxide 29 mmol/L (22-30) 07/04/18 11:38 Anion Gap 12 (10-20) 07/04/18 11:38 BUN 8 mg/dL (9-20) L 07/04/18 11:38 Creatinine 0.6 mg/dL (0.8-1.5) L 07/04/18 11:38 Est GFR ( Amer) > 60 07/04/18 11:38 Est GFR (Non-Af Amer) > 60 07/04/18 11:38 Random Glucose 126 mg/dL (75-110) H 07/04/18 11:38 Calcium 8.7 mg/dl (8.6-10.4) 07/04/18 11:38 Total Bilirubin 1.1 mg/dL (0.2-1.3) 07/04/18 11:38 AST 36 U/L (17-59) 07/04/18 11:38 ALT 58 U/L (21-72) 07/04/18 11:38 Alkaline Phosphatase 95 U/L (38-126) 07/04/18 11:38 Total Protein 6.5 g/dL (6.3-8.3) 07/04/18 11:38 Albumin 3.3 g/dL (3.5-5.0) L 07/04/18 11:38 Globulin 3.1 gm/dL (2.2-3.9) 07/04/18 11:38 Albumin/Globulin Ratio 1.1 (1.0-2.1) 07/04/18 11:38 Blood Type O POSITIVE 07/02/18 08:17 Antibody Screen Negative 07/02/18 08:17 Attending/Attestation - Attestation I have personally seen and examined this patient.: Yes I have fully participated in the care of the patient.: Yes I have reviewed all pertinent clinical information, including history, physical exam and plan: Yes Notes (Text): 07/05/18 11:20 Medical attending: Patient was seen and examined by me. As mentioned previously the patient is S/P total knee replacment The patient is pending going to [facility] later today for more rehab. He reported no problems overnight, he says he was able to sleep. Yesterday he allowed CBC to be drawn - today he again refused Yesterday Hgb was 9 Patient reported that the pain was well controlled at this time. He is getting both IV and PO medication Will restart patient on methadone 50 once before he goes today and he needs to resume this over at TCU Nic Bauman
[2018-07-05] MEDS ORDERED: Pneumococcal 23-Valent Vaccine IM ONE (10:00)
[2018-07-05] MEDS ORDERED: Methadone 40 mg Tab PO ONE ×2 (10:30→10:45)
[2018-07-05] MEDS: Metoprolol Succinate 25 mg XL Tab PO SCH (10:46)
[2018-07-05 11:01] LABS: BASO % 0.5 % (0.0-2.0); EOS # 0.2 K/uL (0.0-0.7); EOS % 2.5 % (0.0-4.0); HEMOGLOBIN 9.2 g/dL (12.0-18.0); LYMPH # 1.9 K/uL (1.0-4.3); LYMPH % 22.6 % (20.0-40.0); MEAN CELL VOLUME 87.6 fL (80.0-94.0); MEAN CORPUSCULAR HEMOGLOBIN 31.3 pg (27.0-31.0); MEAN CORPUSCULAR HGB CONC 35.7 g/dL (33.0-37.0); MEAN PLATELET VOLUME 7.9 fL (7.2-11.7); MONO # 0.7 K/uL (0.0-0.8); MONO % 8.2 % (0.0-10.0); NEUT # 5.6 K/uL (1.8-7.0); NEUT % 66.2 % (50.0-75.0); RBC 2.95 Mil/uL (4.40-5.90); RED CELL DISTRIBUTION WIDTH 12.7 % (11.5-14.5); WHITE BLOOD COUNT 8.4 K/uL (4.8-10.8)
[2018-07-05 11:28] LABS: ALB/GLOB RATIO 1.1 (1.0-2.1); ALBUMIN 3.5 g/dL (3.5-5.0); ALT/SGPT 46 U/L (21-72); AST/SGOT 25 U/L (17-59); BLOOD UREA NITROGEN 7 mg/dL (9-20); CALCIUM 8.5 mg/dl (8.6-10.4); GFR NON-AFRICAN AMERICAN > 60
[2018-07-05] MEDS: Enoxaparin 40 mg Syringe SC SCH (13:30)
[2018-07-05 15:44] VITALS: BP 105/70; PULSE 87; TEMP 98.3
--- NOTE | 2018-08-07 11:57 | OP ---
PROCEDURE DATE: 07/02/2018 PREOPERATIVE DIAGNOSES: Left knee: 1. Degenerative joint disease. 2. Varus alignment/deformity. 3. Synovitis. POSTOPERATIVE DIAGNOSES: Left knee: 1. Degenerative joint disease. 2. Varus alignment/deformity. 3. Synovitis. PROCEDURE: Left knee, total knee arthroplasty. SURGEON: Celeste Go MD RESIDENTIAL PROGRAM WORKER: Jazmyn Perez PA-C JUSTIFICATION FOR RESIDENTIAL PROGRAM WORKER: Jazmyn Perez is a certified physician administrative sales assistant whose skilled surgical services were an absolute necessity for successful completion of the procedure as she provides skilled surgical assistance with positioning of the patient, positioning of the extremity, management of surgical gonzales, retraction of neurovascular structures, surgical exposure and preparation of distal femur and distal femoral cuts, surgical exposure in preparation of proximal tibia and proximal tibial cuts, patellar cuts, soft tissue stabilization, placement of trial implants, proper cement technique and placement of final implants, soft tissue repair and wound closure. Jazmyn Perez was present for the entire case and was an absolute necessity for successful completion of the procedure. ANESTHESIA: General endotracheal anesthesia with a regional nerve block placed by anesthesia staff in PACU. SPECIMENS: Bony cuts sent to pathology as per hospital protocol. ESTIMATED BLOOD LOSS: 100 mL. TOURNIQUET TIME: 300 mmHg with 100 minutes. COMPLICATIONS: None. DRAINS: Hemovac drain x1. DISPOSITION: The patient was extubated and transferred to PACU in stable condition having tolerated the procedure well. IMPLANTS: 1. Medacta GMK sphere primary total knee system with placement of a cemented size 4 left tibial tray, cemented size 4 left femoral component, cemented size 1 patellar button polyethylene, 17 mm sphere polyethylene spacer. 2. Biomet bone cement. INDICATIONS FOR SURGERY: The patient is a 67-year-old male with a past medical history significant for hypertension, history of liver disease with successful treatment, who presents to the office under my care for the first time since 07/12/2016, with right greater than left knee pain for over a year, negatively impacting his quality of life and causing him to ambulate with a cane. X-rays in the office showed significant DJD, already progressing for both knees with x-rays of the left knee showing collapse of medial joint space. We started conservative treatment in the form of physical therapy, medial off-forklift wheel loader bracing as he has varus alignment with medial joint line pain, anti-inflammatory medication in the form of Mobic, anti-inflammatory cream, and pain management with Dr. Pascual Paulson. His pain required oxycodone dosing chronically. Over the course of almost two years under my care, he underwent multiple cortisone injections in both knees and two courses of hyaluronic acid injections in the form of Orthovisc series, four injections. All of the injections including the hyaluronic acid series provided him with significant pain relief that was not longstanding. The right knee pain eventually subsided and was controlled with conservative treatments, but the left knee pain continues. We discussed treatment options including degenerative knee arthroscopy versus total knee arthroplasty after failing conservative treatment for almost two years and still providing him with significant pain and the need for opioid medication. 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 He was indicated for a left knee total knee arthroplasty. The risks, benefits, and alternatives of the procedure was discussed in length with the patient with the risks including, but not limited to infection, neurovascular damage, failure of implant, need for further surgery, periprosthetic fracture, need for revision surgery, catastrophic mechanical failure, stiffness, development of chronic pain and disability, development of blood clots including DVT and PE, unsatisfactory outcome in pain control, anesthesia reactions including , cardiopulmonary collapse during the perioperative period. After answering all of his questions, he stated that he understood the risks and wished to proceed with surgery. He watched surgical animation videos and diagnosis animation video on multiple occasions in my office and stated that he had a good understanding of the surgery as well as his diagnosis. He was referred to his primary care physician for preoperative medical clearance and PATs, and the procedure was scheduled at [facility] on 07/02/2018. PROCEDURE IN DETAIL: The patient was identified in the preoperative holding area, and the left knee was marked for surgery. Once again, as described above, the risks, benefits, and alternatives to the procedure were discussed at length with the patient and informed consent was obtained. After brief discussion with anesthesia staff, the patient was brought to the operating room and placed on a well-padded operating room table with all bony prominences and superficial neurovascular structures well padded. An initial time-out was done. Perioperative IV antibiotics were administered. General anesthesia was administered without difficulty or complication. Examination under anesthesia was then carried out. Examination under anesthesia: Left knee with 5 degree flexion contracture and limited flexion to 100 degrees. Significant crepitance throughout range of motion. No evidence of instability. Skin intact, no swelling, no warmth, no erythema. No opening to varus or valgus stress at medial or lateral joint lines at 0 to 30 degrees of varus or valgus stress. Negative anterior drawer, negative posterior drawer, negative Jefe, negative reverse Jefe, negative pivot shift, negative reverse pivot shift, negative dial test, negative posterolateral corner drawer test, patella with normal tracking, but there was significant crepitance. Continuation of procedure: Tourniquet was placed high on the left thigh. The left lower extremity was prepped and draped in standard sterile fashion. A final time-out was done with the surgeon, anesthesia staff, OR staff, all in agreement with the patient, procedure being done, and the extremity being operated on. The left lower extremity was exsanguinated and tourniquet was inflated to 300 mmHg for total tourniquet time of 100 minutes. A medial parapatellar approach to the knee was carried out starting three fingerbreadths above the level of the patella along the medial aspect of the quadriceps tendon to the patella along the medial aspect of the patellar tendon to the tibial tuberosity. An incision was made to skin down to subcutaneous tissue while maintaining good hemostasis down to the level of the medial retinaculum. Medial retinaculum/arthrotomy was carried out starting at the medial aspect of the quadriceps tendon down and around the medial aspect of the patella to the medial aspect of the patellar tendon down to the tibial tuberosity. A medial release was carried out with periosteal elevation medially and resection of osteophytes and release of deep MCL. The knee was then brought into an extended position and the patella was everted and the patellar cut was carried out while maintaining greater than 15 mm bone stalk. This was done using the youmaga cutting guide for the patella. An extensive synovectomy was then carried out exposing the distal femur landmarks for the custom cutting guides. The knee was brought into flexion. ACL was resected and the infrapatellar fat pad was resected. PCL was resected. Contact points for the custom cutting guides for the distal femur were debrided of overlying cartilage and the cutting block for the distal femoral cut was pinned into position. Distal femoral cut was carried out. Four-in-one guide was then applied and pinned securely into position with a 3-degree external rotation dialed into the jig. Anterior cut, posterior cut, anterior chamfer, and posterior chamfer cuts were carried out successfully. Trial implant was then placed, size 4, left femur that fit in perfectly. Trial distal femur was removed and attention then turned towards proximal tibial preparation. Contact points for the proximal tibial cutting guide were debrided of overlying cartilage and the cutting guide was pinned into position. Alignment guide confirmed the latter day in neutral alignment. Proximal tibial cut was created. Once the proximal tibial cut was carried out and the menisci were resected, the proximal tibial preparation continued with placement of the wedge osteotome followed by proximal reaming. Trial size 4 tibia and trial size 4 femur were then placed with a size 14 mm polyethylene spacer with good soft tissue balancing maintained. At that point in time, the distal femoral cut was completed with the distal femur sphere implant cutting guide. Once this was completed, the knee and bony cut surfaces were copiously irrigated with 2000 mL of normal saline. They were padded dry and the Biomet cement was mixed. Good cement technique was carried out to implant the final implants. Size 4 cemented GMK primary sphere distal femur knee implant was placed successfully. The proximal tibia size 4 tibial base plate and a 14 mm sphere spacer were placed successfully. Size 1 patellar button was cemented successfully. We waited for the cement to dry and once the cement dried, the tourniquet was deflated for a total tourniquet time of 100 minutes at 300 mmHg. Good hemostasis was achieved. Local anesthetic was then injected in the posterior capsule and surrounding soft tissue. The trial spacer of 14 mm proved to be a little laxed and a 17 mm trial was placed, which had good soft tissue balancing and achieved full range of motion from full extension to 140 degrees of flexion. A final 14 mm sphere polyethylene spacer was opened and secured to the tibial base plate and the knee was trialed with good patellar tracking and soft tissue balancing and full range of motion appreciated with good mid-flexion stability and overall stability of the implant and knee with neutral alignment achieved. The knee joint was then copiously irrigated again with 1000 mL. Local anesthetic was placed. Hemovac drain was placed. Alternating #2 FiberWire sutures, #1 Vicryl suture were used to repair the retinaculum and deep tissue and restored normal patellar tracking. The #1 Vicryl suture was used for subcutaneous reapproximation with two plain 0 Vicryl suture as well. Cody were used for skin. Sterile dressings were then applied. A layer of sterile cast padding was applied from the toes up to the superior thigh. A layer of compressive Juan Pablo wrap was applied from the toes up to the superior thigh. The knee was then placed in the knee immobilizer and the patient was extubated and transferred to the PACU in stable condition having tolerated the procedure well. DISPOSITION: The patient will remain as an inpatient on the medical service. He will receive adequate pain control. He will be started on DVT prophylaxis in the form of 40 mg subcutaneous Lovenox injections starting postoperative day #1. He will wok with physical therapy and have no restrictions and be weightbearing as tolerated to the right lower extremity, focusing on regaining range of motion. Once he is stable for discharge, he will be most likely discharged to a subacute rehab. He must follow up in my office within two weeks from discharge. We will ensure that he has proper followup. We will monitor his outcome as an inpatient and follow his progress with physical therapy. Celeste Go MD
== END 2018-07-05 16:35 | DRG 470 ==
LOC: C.9S 06:51 → C.6T 18:17
PROVIDERS: ADMIT Hospitalist; ATTEND Hospitalist
PROC: 0SRD0J9 Replacement of Left Knee Joint with Synthetic Substitute, Cemented, Open Approach (ICD-10-PCS; principal; 2018-07-02 09:00)
DX: M17.0 Bilateral primary osteoarthritis of knee (principal); F11.20 Opioid dependence, uncomplicated; E78.5 Hyperlipidemia, unspecified; B19.20 Unspecified viral hepatitis C without hepatic coma; F17.210 Nicotine dependence, cigarettes, uncomplicated; G43.909 Migraine, unspecified, not intractable, without status migrainosus; K74.60 Unspecified cirrhosis of liver; I10 Essential (primary) hypertension; M65.862 Other synovitis and tenosynovitis, left lower leg; Z87.01 Personal history of pneumonia (recurrent); Z96.652 Presence of left artificial knee joint